=== PATIENT | male | born 1965 | race Asian ===

== ENCOUNTER 2025-04-14 10:59 | Emergency (ER) | payer MEDICAID ==
[~2025-04-14] VITALS: Ht 121.9 cm; Wt 69.8 kg
[2025-04-14 11:05] VITALS: TEMP 98
--- NOTE | 2025-04-14 12:04 | RADIOLOGY REPORT ---
[facility] EXAMINATION: DI UNI RIBS WITH PA CHEST INDICATION: Right rib injury COMPARISON: None TECHNIQUE: Frontal view of the chest and 2 views of the bilateral ribs history FINDINGS/IMPRESSION: Trace right pleural effusion. Moderate left pleural effusion. Right displaced rib fracture. Left basilar opacity. Atherosclerotic vascular calcifications of the thoracic aorta are noted.
[2025-04-14 12:33] LABS: MEAN PLATELET VOLUME 9.4 FL (7.4-10.4); RED CELL DISTRIBUTION WIDTH 14.5 % (11.5-14.5)
[2025-04-14 12:55] LABS: CREATININE 0.93 MG/DL (0.60-1.10); TOTAL CARBON DIOXIDE 28.9 MMOL/L (24-32); eCRCL 27 ML/MIN; eGFR 83 ML/MIN
[2025-04-14] MEDS ORDERED: iohexol 300mg/ml 100ml inj. ONE (13:20)
[2025-04-14] MEDS: ondansetron/PF 4mg/2ml inj IV ONE (14:06)
[2025-04-14] MEDS: morphine 4 MG/ML inj SYRINge IV ONE (14:14)
--- NOTE | 2025-04-14 14:28 | RADIOLOGY REPORT ---
Indication: Chest wall trauma with a moderate left-sided effusion on plain film x-ray Technique: CT axial images of the chest are obtained with intravenous contrast. Coronal and sagittal reformats were obtained. Radiation Dose Information: CTDI volume is 14. mGy. Dose-length product is 585 mGy*cm Comparison: None FINDINGS: The trachea is patent. No pneumothorax. Right middle lobe solid nodule measuring 5 mm. Bilateral atelectasis. There is a small left pleural effusion that is loculated with thick rim5. There also peripheral calcifications along the portion of the left pleural cavity. Cardiomegaly. Aortic atherosclerotic disease. No supraclavicular or axillary lymphadenopathy. Small hiatal hernia. Mild thoracic degenerative disc disease. Acute fracture right lateral 9th rib. IMPRESSION: Acute fracture of the right lateral 9th rib. There is a small loculated left pleural effusion with thick rim as well as left pleural calcifications. This can be secondary to prior trauma/ hemothorax however other etiologies including empyema and malignant effusion remain within the differential. Correlate clinically. 5 mm right middle lobe solid nodule. Recommend follow-up per Fleischner society criteria. Cardiomegaly. Other findings as described.
--- NOTE | 2025-04-14 14:37 | Physician Documentation ---
History of Present Illness ~ Chief Complaint: Rib pain Stated Complaint: FALL RIB PAIN Time Seen by MD: 11:33 OK to notify your PCP?: Yes Source: geography professor (The patient's speaks [place]) Mode of Arrival: POV, Ambulatory Exam Limitations: language barrier HPI This is a 59-year-old male who comes in complaining of right-sided chest wall pain off for a follow up by six days ago. The patient states that is he was getting out of a car and stepped on the side rail of the car for which he slipped off of landing on his right side. He is complaining of stabbing pain of the right side of the rate of the skin progressively worse. He says he is short of breath but states it hurts to taking a deep breath. He denies hemoptysis. He denies fever or productive cough Tetanus within 5 Years?: Yes Allergies: Coded Allergies: No Known Allergies (Unverified , 04/14/25) Active Prescriptions See Medication Reconciliation Form. Physical Exam Vital Signs: Temperature: 98.0, Source: Oral, Heart Rate: 58, Respiratory Rate: 16, BP: 122/62, Pulse Oximetry: 97, Weight: 69.800 Oxygen Flow Rate: 0 Pulse Oximetry Reflects: adequate oxygenation General Appearance: alert, WD/WN, mild distress (Secondary to pain) Cardiovascular No rubs, gallops or murmurs. Peripheral edema Chest: tender (Positive tenderness to palpation of the right lower anterior axillary chest wall. No obvious crepitus deformity or flail segment.) Respiratory Lungs are clear in the right side in all lobes. There is decreased air movement of the left lower lobe without obvious crackles rales or wheezes. Left upper lobe is clear. Back No tenderness to palpation down the midline of the thoracolumbar spine. Progress Results/Orders Reviewed/noted all lab results: Yes Results/Orders Orders - RICARDO SINGLETARY PA Uni Ribs With Pa Chest (04/14/25 11:32) Pt Inr (04/14/25 12:08) PTT (04/14/25 12:08) Ct Chest (04/14/25 12:10) * Iv Access / Saline Lock * (04/14/25 12:10) Completed Orders - RICARDO SINGLETARY PA Uni Ribs With Pa Chest (04/14/25 11:32) Cbc/Diff (04/14/25 12:08) BMP (04/14/25 12:08) CK (04/14/25 12:08) Ct Chest (04/14/25 12:10) Iohexol 300mg/Ml 100ml Inj. (Omnipaque-3 (04/14/25 13:20) Morphine 4mg/Ml Inj. (Morphine Inj.) (04/14/25 14:00) Ondansetron Inj. (Zofran 4mg/2ml Vial) (04/14/25 14:00) Medications Received in ER Medications (Trade) Dose Ordered Sig/Lady Route PRN Reason Start Time Stop Time Status Last Admin Dose Admin (morphine inj.) 4 mg ONCE ONCE IV 04/14/25 14:00 04/14/25 14:01 DC 04/14/25 14:14 4 MG (Zofran 4mg/2ml vial) 4 mg ONCE ONCE IV 04/14/25 14:00 04/14/25 14:01 DC 04/14/25 14:06 4 MG Vital Signs 04/14/25 04/14/25 04/14/25 04/14/25 11:05 12:29 12:32 14:14 Temp 98.0 Pulse 64 58 Resp 16 16 16 16 B/P (MAP) 133/57 122/62 (82) Pulse Ox 97 97 O2 Flow Rate 0 0 Laboratory Tests Test 04/14/25 12:21 White Blood Count 10.9 Red Blood Count 4.60 L Hemoglobin 14.6 Hematocrit 43.1 Mean Corpuscular Volume 93.9 Mean Corpuscular Hemoglobin 31.7 H Mean Corpuscular Hemoglobin Concent 33.8 Red Cell Distribution Width 14.5 Platelet Count 235 Mean Platelet Volume 9.4 Neutrophils (%) (Auto) 57.3 Lymphocytes (%) (Auto) 27.2 Monocytes (%) (Auto) 10.0 Eosinophils (%) (Auto) 5.0 Basophils (%) (Auto) 0.5 Neutrophils # (Auto) 6.2 Lymphocytes # (Auto) 3.0 Monocytes # (Auto) 1.1 H Eosinophils # (Auto) 0.5 Basophils # (Auto) 0.1 CBC Comment Sodium Level 142 Potassium Level 3.7 Chloride Level 107 Carbon Dioxide Level 28.9 Anion Gap 6 L Blood Urea Nitrogen 22 H Creatinine 0.93 Estimated GFR/1.73 m2 83 BUN/Creatinine Ratio 23.7 H Glucose Level 96 Calcium Level 9.5 Total Creatine Kinase 868 H Albumin 3.8 Chemistry Comments EKG/XRAY/CT/US/VASC/MRI Chest X-Ray : Interpreted By: self Additional Comments Chest x-ray one view interpreted by me: Displaced fracture of the right 9th rib. Left pleural effusion. soft tissues unremarkable. Medical Decision Making Additional information obtaine: other Findings Plain film x-rays showed a displaced fracture of the right 9th rib however there was a moderate left side of the pleural effusion. It had CT chest with IV contrast rule out an hemothorax. After speaking with the patient with the help of a [place] geography professor the patient is states the left side fluid in the lungs has a chronic issue that he has been treated for before. [place]. He says he has never had a history of tuberculosis. He is not complaining of left-sided chest pain in all with the pain in his in the right where he fell. I believe with the findings are incidental and chronic. I discussed this case with Dr. Air faustin so agreed. The patient is a is a be sent home with a prescription for [place] for pain. I instructed him to splint the ribs with a firm pillow and taking deep breaths periodically throughout the day. If you develops signs of pneumonias in his fever, cough with sputum or hemoptysis he should return to the ER. Differential Dx:Considerations: Include: Chest wall contusion, Pneumothorax, Pulmonary contusion, Rib fracture Departure Disposition: 01 HOME / SELF CARE / HOMELESS Impression: Primary Impression: Fracture of rib Condition: Stable Discharge Instructions: Rib Fracture Additional Instructions: Take the pain medication as needed. Splint the ribs with a firm pillow. Follow up with the your primary care physician for recheck in the next one or two days and return to the ER for any worsening or concerning symptoms Referrals: NO PRIMARY CARE PROVIDER (PCP) Prescriptions Hydrocodone Bit/Acetaminophen (Hydrocodone-Apap 10-325 Tablet) 10mg/325mg Tablet 1 TABLET PO Q4H PRN for moderate or severe pain 4-10, #30 TAB Prov: RICARDO SINGLETARY 04/14/25 Signature Scribe Signature: No scribe Attestation: The note accurately reflects work and decisions made by me.Ricardo PHAM 04/14/25 15:11 RICARDO SINGLETARY Apr 14, 2025 14:37
[2025-04-14] MEDS ORDERED: HYDR-3973 PO (15:10)
[2025-04-14 15:22] VITALS: BP 131/45; PULSE 60; RESP 16; O2SAT 98
[2025-04-18] MEDS ORDERED: NO HOME MEDS (14:55)
== END 2025-04-14 15:25 | disposition home or self-care (01) ==
LOC: EDBD → ER 11:00
DX: S22.31XA Fracture of one rib, right side, initial encounter for closed fracture (principal); V48.4XXA Person boarding or alighting a car injured in noncollision transport accident, initial encounter; Y93.89 Activity, other specified; Y92.89 Other specified places as the place of occurrence of the external cause; Y99.8 Other external cause status
CPT/HCPCS: 71101; 71260; 80048; 82550; 85025; 96374; 96375; 99285; J2270; J2405; Q9967